=== PATIENT | female | born 1955 | race Caucasian/White ===

== ENCOUNTER 2017-05-27 13:12 | Day surgery (SDC) | payer OTHER ==
[2017-05-25 15:26] VITALS: BMI 28.3
[2017-05-27] MEDS ORDERED: MIDAZOLAM HCL 2 MG/2 ML SINGLE DOSE VIAL ONE (14:09)
[2017-05-27] MEDS ORDERED: PROPOFOL 20 ML ONE ×2 (14:09→14:11)
[2017-05-27] MEDS ORDERED: LIDOCAINE HCL/PF 2% SDV 5ML VIAL ONE (14:11)
[2017-05-27] MEDS ORDERED: LIDOCAINE HCL 2% (20ML MULTI-DOSE VIAL) NR ONE (14:37)
[2017-05-27] MEDS ORDERED: LIDOCAINE HCL/PF 2% SDV 5ML VIAL INF ONE (14:43)
[2017-05-27 15:22] VITALS: PULSE 76; TEMP 97.8
[2017-05-27] MEDS ORDERED: ONDANSETRON 4 MG/2 ML VIAL IVPUSH PRN (15:53)
[2017-05-27] MEDS ORDERED: oxyCODONE HCL 5 MG TABLET PO PRN (15:53)
[2017-05-27 15:57] VITALS: BP 110/74
[2017-05-27] MEDS ORDERED: LACTATED RINGERS SOLUTION 1,000 ML IV SCH (16:00)
--- NOTE | 2017-05-28 10:12 | OP ---
DATE OF OPERATION: 05/27/2017 PREOPERATIVE DIAGNOSIS: Right long trigger finger. POSTOPERATIVE DIAGNOSIS: Right long trigger finger. OPERATIVE PROCEDURE: Right long trigger finger release. ANESTHESIA: Local with sedation. COMPLICATIONS: None. ESTIMATED BLOOD LOSS: Minimal. INDICATION FOR PROCEDURE: The patient is a 61-year-old female with the above finding indicated for operative treatment. Risks, benefits, and alternatives were discussed with the patient at length. Operative informed consent was obtained. DESCRIPTION OF PROCEDURE: After proper identification of patient and correct operative site, the patient was brought to the operating room and placed supine on the table, bony prominences well padded. Sedation was given by the anesthesiologist. Local anesthesia was given with 2% lidocaine. Right upper extremity was prepped and draped in the usual sterile fashion. A well-padded tourniquet was placed with a sterile prep. Esmarch bandage used to exsanguinate the right upper extremity. Tourniquet was inflated to 250 mmHg. A longitudinal incision was made over the A1 ivan to the long finger. Incision was taken sharply through the skin with blunt and sharp dissection of the subcutaneous tissues. A1 ivan was identified and divided. The patient was asked to flex and extend her finger, and no further triggering was noted. The wound was irrigated with saline and repaired with a 5-0 nylon suture. Sterile dressings were placed. The patient was reversed from anesthesia and brought to the recovery room in stable condition. She tolerated the procedure well. ANA PATRICK M.D. [id number]
== END 2017-05-27 16:00 | disposition home or self-care (01) ==
LOC: FASU 13:12
PROVIDERS: ATTEND Orthopaedic Surgery Hand Surgery
PROC: 0LN70ZZ Release Right Hand Tendon, Open Approach (ICD-10-PCS; principal; 2017-05-27 14:30)
DX: M65.331 Trigger finger, right middle finger (principal)
CPT/HCPCS: 82962

== ENCOUNTER 2018-05-12 13:19 | Day surgery (SDC) | payer OTHER ==
[2018-05-12 13:34] VITALS: BMI 28.3
[2018-05-12] MEDS ORDERED: MIDAZOLAM HCL 2 MG/2 ML SINGLE DOSE VIAL ONE (14:23)
[2018-05-12 15:40] VITALS: PULSE 72; TEMP 98
[2018-05-12 15:55] VITALS: BP 121/74
--- NOTE | 2018-05-13 16:23 | OP ---
DATE OF OPERATION: 05/12/2018 PREOPERATIVE DIAGNOSIS: Right trigger thumb. POSTOPERATIVE DIAGNOSIS: Right trigger thumb. OPERATIVE PROCEDURE: Right trigger thumb release. ANESTHESIA: Local with sedation. COMPLICATIONS: None. ESTIMATED BLOOD LOSS: Minimal. INDICATION FOR PROCEDURE: The patient is a 62-year-old female with the above findings, indicated for operative treatment. Risks, benefits, and alternatives were discussed with the patient at length. Proper informed consent was obtained. PROCEDURE: After proper identification of the patient and correct operative site, patient was brought to the operating room and placed supine on the operating table, all bony prominences well padded. Sedation and local anesthesia were given. Right upper extremity was prepped and draped in the usual sterile fashion. Well-padded tourniquet was placed with a sterile prep. Esmarch bandage to exsanguinate the right upper extremity. Tourniquet inflated to 250 mmHg. Transverse incision made over the A1 ivan to the thumb. Incision was taken sharply through the skin with blunt and sharp dissection through subcutaneous tissues. Digital nerves were carefully protected. A1 ivan was divided. Patient was asked to flex and extend her thumb, and no further triggering was noted. Wound was irrigated with saline and repaired with a 5-0 plain gut suture. Sterile dressings were applied. The patient was brought to the recovery room in stable condition. She tolerated the procedure well. ANA PATRICK M.D. [id number]
== END 2018-05-12 15:57 | disposition home or self-care (01) ==
LOC: FASU 13:19
PROVIDERS: ATTEND Orthopaedic Surgery Hand Surgery
PROC: 0LN70ZZ Release Right Hand Tendon, Open Approach (ICD-10-PCS; principal; 2018-05-12 14:59)
DX: M65.311 Trigger thumb, right thumb (principal)

== ENCOUNTER 2019-09-14 09:38 | Day surgery (SDC) | payer OTHER ==
[2019-09-08 15:33] VITALS: BMI 29.7
[2019-09-14] MEDS ORDERED: EPINEPHrine 1:1,000 1 MG/1 ML - 30ML VIAL (INJECTION) ONE (10:17)
[2019-09-14] MEDS ORDERED: MIDAZOLAM HCL 2 MG/2 ML SINGLE DOSE VIAL ONE ×2 (10:27→12:24)
[2019-09-14] MEDS ORDERED: ROPIVACAINE HCL 0.5% 30ML VIAL ONE (10:27)
[2019-09-14] MEDS ORDERED: ONDANSETRON 4 MG/2 ML VIAL IVPUSH PRN (12:58)
[2019-09-14] MEDS ORDERED: PROMETHAZINE HCL 25 MG/1 ML VIAL IVPUSH PRN (12:58)
[2019-09-14] MEDS ORDERED: oxyCODONE HCL 5 MG TABLET PO PRN ×2 (12:58)
[2019-09-14] MEDS ORDERED: ONDANSETRON 4 MG/2 ML VIAL ONE (14:00)
[2019-09-14 15:05] VITALS: TEMP 98.4
[2019-09-14 15:08] VITALS: BP 115/65; PULSE 98
--- NOTE | 2019-09-14 16:18 | OP ---
DATE OF OPERATION: 09/14/2019 PREOPERATIVE DIAGNOSES: 1. Right shoulder rotator cuff tear. 2. Right shoulder subacromial impingement. 3. Right shoulder acromioclavicular joint arthrosis. 4. Right shoulder internal derangement. POSTOPERATIVE DIAGNOSES: 1. Right shoulder full-thickness supraspinatus tear of the rotator cuff. 2. Right shoulder severe subacromial impingement with anteroinferior bone spurs. 3. Right shoulder acromioclavicular joint arthritis. 4. Right shoulder glenohumeral joint synovitis and partial labral tearing and biceps fraying. OPERATIVE PROCEDURE: 1. Right shoulder arthroscopic rotator cuff repair. 2. Right shoulder arthroscopic distal clavicle excision. 3. Right shoulder extensive debridement of glenohumeral joint and biceps tendon. 4. Right shoulder arthroscopic subacromial decompression with anteroinferior acromioplasty. SURGEON: Ana Patrick MD GROUT [employer]MP OPERATOR: CLAUDIA Alvarez ANESTHESIA: Regional. COMPLICATIONS: None. ESTIMATED BLOOD LOSS: Minimal. INDICATION FOR PROCEDURE: The patient is a 63-year-old female with the above finding, indicated for operative treatment. Risks, benefits, and alternatives were discussed with the patient at length. Proper informed consent was obtained. DESCRIPTION OF PROCEDURE: After preoperative identification of the patient, correct operative site, patient was brought to the operating room, placed supine on the table with all prominences well padded. Sedation and regional anesthesia were given. Patient was placed in the beach chair position with all points of contact well padded and in-line cervical position maintained throughout the procedure. The arthroscopy was done through posterior, lateral, and anterior portals. All portals were made with skin incisions and blunt dissection down to joint capsule. Glenohumeral joint was observed and found to have very mild chondromalacia. There was some fraying of the anterior labrum and subscapularis which was debrided. There was moderate synovitis of the glenohumeral joint which was debrided. Biceps anchor was intact, and the biceps was brought into the shoulder, and mild fraying and tenosynovitis were noted, and this was debrided. There was no indication for a tenotomy or a tenodesis at this point as the great bulk of the biceps tendon appeared normal. No loose bodies were found in the axillary pouch. Anterior glenohumeral ligaments were intact. Full-thickness tear of the anterior aspect of the supraspinatus was noted. This was debrided along with the tuberosity. This was minimally retracted. Total anterior-posterior dimension of the tear was less than 1 cm. The remainder of the supraspinatus had some insertional tendinosis on the articular side, and this was debrided. Arthroscope was then introduced into the subacromial space where a severe bursitis was noted, and a bursectomy was performed using the ArthroWand device. Very large anteroinferior acromial spur was noted, and an anteroinferior acromioplasty was performed. The rotator was then observed on the bursal surface, and moderate fraying was noted, but no full-thickness tears were noted other than the one previously described. The rotator cuff was further debrided on this side, including the tear, and was repaired with 2 Arthrex SwiveLock anchors which were placed in a double row configuration. One was placed medially at the articular margin, and 2 FiberTape sutures were passed through the rotator cuff. They were then secured in a crossing fashion laterally using another SwiveLock anchor. This provided secure stable repair of the rotator cuff, with full range of motion achieved without any tension on the repair. The inferior capsule of the acromioclavicular joint was then debrided, and the head of the distal clavicle was found to be severely arthritic. Moderate synovitis was noted of this joint as well. This was debrided. The distal clavicle excision was performed on the distal 7 mm of the articular surface of the distal clavicle. Shoulder was taken through a range of motion, and there was no contact at the AC joint anymore. At this point the shoulder was irrigated, and the incisions were irrigated and repaired with 3-0 nylon sutures. Sterile dressings, ice machine, and sling were placed. Patient was reversed from anesthesia, brought to the recovery room in stable condition. She tolerated the procedure well. Arian Gonzalez, the family medicine physician assistant, was integral throughout the procedure. Procedure could not have been performed without a skilled operative family medicine physician assistant. He was especially integral during positioning for the rotator cuff repair and was necessary to drive the arthroscope and position the arm while repair was performed. This could not have been performed other than by a skilled operative family medicine physician assistant. ANA PATRICK M.D. [id number]
== END 2019-09-14 15:15 | disposition home or self-care (01) ==
LOC: FASU 09:38
PROVIDERS: ATTEND Orthopaedic Surgery Hand Surgery
PROC: 0RBJ4ZZ Excision of Right Shoulder Joint, Percutaneous Endoscopic Approach (ICD-10-PCS; 2019-09-14)
PROC: 0LQ14ZZ Repair Right Shoulder Tendon, Percutaneous Endoscopic Approach (ICD-10-PCS; principal; 2019-09-14 11:59)
PROC: 0RNJ4ZZ Release Right Shoulder Joint, Percutaneous Endoscopic Approach (ICD-10-PCS; 2019-09-14 11:59)
PROC: 0PB94ZZ Excision of Right Clavicle, Percutaneous Endoscopic Approach (ICD-10-PCS; 2019-09-14 11:59)
DX: M75.121 Complete rotator cuff tear or rupture of right shoulder, not specified as traumatic (principal); M75.41 Impingement syndrome of right shoulder; M19.011 Primary osteoarthritis, right shoulder; M24.811 Other specific joint derangements of right shoulder, not elsewhere classified; M94.211 Chondromalacia, right shoulder; M65.811 Other synovitis and tenosynovitis, right shoulder
CPT/HCPCS: 82962; 94760

== ENCOUNTER 2022-01-01 07:06 | Day surgery (SDC) | payer OTHER ==
[2021-12-30 12:01] VITALS: BMI 29.2
[2022-01-01 07:45] VITALS: RESP 18; TEMP 97.8
[2022-01-01] MEDS ORDERED: FENTANYL CITRATE/PF 50 MCG/ML VIAL ONE (08:34)
[2022-01-01] MEDS ORDERED: MIDAZOLAM HCL 2 MG/2 ML SINGLE DOSE VIAL ONE (08:34)
[2022-01-01] MEDS ORDERED: PROPOFOL 20 ML ONE (08:42)
[2022-01-01] MEDS ORDERED: ONDANSETRON 4 MG/2 ML VIAL ONE (08:52)
[2022-01-01] MEDS ORDERED: DEXAMETHASONE SOD PHOSPHATE 4 MG/1 ML VIAL ONE (08:52)
[2022-01-01 09:44] VITALS: BP 120/80; PULSE 80
== END 2022-01-01 10:02 | disposition home or self-care (01) ==
LOC: FASU 07:06
PROVIDERS: ATTEND Orthopaedic Surgery Hand Surgery
PROC: 0LN80ZZ Release Left Hand Tendon, Open Approach (ICD-10-PCS; principal; 2022-01-01 08:54)
DX: M65.312 Trigger thumb, left thumb (principal)
CPT/HCPCS: 82962

== ENCOUNTER 2022-12-31 06:28 | Day surgery (SDC) | payer OTHER ==
[2022-12-29 11:30] VITALS: BMI 28.6
[2022-12-31 06:59] VITALS: RESP 16
[2022-12-31] MEDS ORDERED: LIDOCAINE HCL 2% (20ML MULTI-DOSE VIAL) ONE (07:23)
[2022-12-31] MEDS ORDERED: PROPOFOL 40 ML ONE (07:31)
[2022-12-31] MEDS ORDERED: SUCCINYLCHOLINE CHLORIDE 200 MG/10 ML SYRINGE ONE (07:31)
[2022-12-31] MEDS ORDERED: MIDAZOLAM HCL 2 MG/2 ML SINGLE DOSE VIAL ONE (07:31)
[2022-12-31] MEDS ORDERED: DEXAMETHASONE SOD PHOSPHATE 4 MG/1 ML VIAL ONE (08:08)
[2022-12-31] MEDS ORDERED: ONDANSETRON 4 MG/2 ML VIAL ONE (08:08)
[2022-12-31 08:52] VITALS: TEMP 95
[2022-12-31 09:07] VITALS: BP 127/69; PULSE 75
== END 2022-12-31 09:14 | disposition home or self-care (01) ==
LOC: FASU 06:28
PROVIDERS: ATTEND Orthopaedic Surgery Hand Surgery
PROC: 0LN70ZZ Release Right Hand Tendon, Open Approach (ICD-10-PCS; 2022-12-31)
PROC: 0LN70ZZ Release Right Hand Tendon, Open Approach (ICD-10-PCS; principal; 2022-12-31 08:20)
DX: M65.321 Trigger finger, right index finger (principal); M65.341 Trigger finger, right ring finger
CPT/HCPCS: 82962